=== PATIENT | male | born 1970 | race Caucasian/White ===

== ENCOUNTER 2024-12-26 14:12 | Outpatient (CLI) | payer OTHER | END 2024-12-26 14:30 | disposition home or self-care (01) | LOC: RAD 14:12 → MRI 14:12 → RAD 14:30 | PROVIDERS: ATTEND Orthopaedic Surgery | DX: M25.561 Pain in right knee (principal); M25.562 Pain in left knee | CPT/HCPCS: 73721 ==

== ENCOUNTER 2024-12-27 15:06 | Outpatient (CLI) | payer OTHER | END 2024-12-27 15:30 | disposition home or self-care (01) | LOC: MRI 15:06 | PROVIDERS: ATTEND Orthopaedic Surgery | DX: M25.561 Pain in right knee (principal) | CPT/HCPCS: 73721 ==